=== PATIENT | female | born 1995 | race Caucasian/White ===

== ENCOUNTER 2016-07-26 09:02 | Day surgery (SDC) | payer OTHER ==
[~2016-07-26] VITALS: Ht 170.2 cm; Wt 57.5 kg
[2016-07-26] MEDS ORDERED: NUVARING VAG RING VG (09:17)
[2016-07-26] MEDS ORDERED: ULTRACET TABL1 UDTAB PO (09:18)
[2016-07-26] MEDS ORDERED: ZOFRAN 4MG T4 MG/TAB PO (09:18)
[2016-07-26] MEDS ORDERED: DEXILANT30 MG (09:19)
[2016-07-26] MEDS ORDERED: PROBIOTIC FORMU1 CAP (09:20)
[2016-07-26 10:01] VITALS: BP 141/96; PULSE 86; TEMP 98.3
[2016-07-26 11:25] VITALS: BP 141/86; PULSE 104; TEMP 97.8
[2016-07-26 11:30] VITALS: BP 127/81; PULSE 97
[2016-07-26 11:45] VITALS: BP 115/77; PULSE 75
== END 2016-07-26 11:50 | disposition home or self-care (01) ==
LOC: SDCO 09:02
DX: R11.2 Nausea with vomiting, unspecified (principal); R14.2 Eructation; R68.81 Early satiety
CPT/HCPCS: J2250; J3010; J7030

== ENCOUNTER 2019-03-19 10:55 | Emergency (ER) | payer OTHER ==
[~2019-03-19] VITALS: Ht 170.2 cm; Wt 72.7 kg
[~2019-03-19 10:55] MED LIST: DEXILANT30 MG; NUVARING VAG RING VG; PROBIOTIC FORMU1 CAP; ULTRACET TABL1 UDTAB PO; ZOFRAN 4MG T4 MG/TAB PO
[2019-03-19 11:10] VITALS: BP 139/93; TEMP 98.8
[2019-03-19] MEDS ORDERED: WELLBUTRIN SR100 M1 PO (11:25)
[2019-03-19 12:45] VITALS: PULSE 98
== END 2019-03-19 12:48 | disposition home or self-care (01) ==
LOC: COL.ER 10:55
DX: S20.211A Contusion of right front wall of thorax, initial encounter (principal); Z90.49 Acquired absence of other specified parts of digestive tract; W18.39XA Other fall on same level, initial encounter; Y92.009 Unspecified place in unspecified non-institutional (private) residence as the place of occurrence of the external cause